=== PATIENT | male | born 1940 | race Caucasian/White ===

== ENCOUNTER → 2018-05-17 | Outpatient (CLI) | payer MEDICARE, OTHER | LOC: RAD 08:46 | DX: E04.1 Nontoxic single thyroid nodule (principal) ==

== ENCOUNTER → 2018-08-19 | Outpatient (CLI) | payer MEDICARE, OTHER | LOC: RAD 09:44 | DX: J43.9 Emphysema, unspecified (principal); R91.1 Solitary pulmonary nodule | CPT/HCPCS: Q9967 ==

== ENCOUNTER 2019-06-21 11:11 | Emergency (ER) | payer MEDICARE, OTHER ==
[~2019-06-21] VITALS: Wt 93.2 kg
[2019-06-21 11:38] LABS: HEMATOCRIT 40.7 % (42.0-52.0); HEMOGLOBIN 13.1 g/dL (13.5-18.0); MEAN CELL VOLUME 96 fl (78-100); MEAN CORPUSCULAR HEMOGLOBIN 31 pg (27-31); MEAN CORPUSCULAR HGB CONC 32 g/dL (33-37); MEAN PLATELET VOLUME 11.9 fl (7.4-10.4); PLATELET COUNT 175 K/mm3 (130-400); RED BLOOD COUNT 4.26 M/mm3 (4.20-5.60); RED CELL DISTRIBUTION WIDTH 14.2 % (11.5-14.5); WHITE BLOOD COUNT 11.3 K/mm3 (4.8-10.8)
[2019-06-21 11:53] LABS: ALBUMIN 3.9 g/dL (3.4-4.8)
[2019-06-21 11:54] LABS: POTASSIUM 3.9 mmol/L (3.5-5.1)
[2019-06-21 11:55] LABS: CALCIUM 8.8 mg/dL (8.3-10.5)
[2019-06-21 11:56] LABS: TOTAL PROTEIN 6.6 g/dL (6.2-8.1)
[2019-06-21 12:08] LABS: BAND 1 % (0-10); LYMPHOCYTE 10 % (20-51); MONOCYTE 9 % (3-10); NEUTROPHILS 79 % (42-75)
[2019-06-21 12:41] LABS: URINE APPEARANCE CLEAR; URINE BILIRUBIN NEGATIVE (NEGATIVE); URINE BLOOD NEGATIVE (NEGATIVE); URINE COLOR YELLOW; URINE GLUCOSE NEGATIVE (NEGATIVE); URINE KETONE 1+ (NEGATIVE); URINE LEUKOCYTE ESTERASE NEGATIVE (NEGATIVE); URINE NITRATE NEGATIVE (NEGATIVE); URINE PROTEIN(semi-quant) NEGATIVE (NEGATIVE); URINE UROBILINOGEN NORMAL (NORMAL); URINE WBC 0-1 /hpf (0-3)
[2019-06-21] MEDS ORDERED: ATORVASTATIN CA40 MG PO (13:05)
[2019-06-21] MEDS ORDERED: FUROSEMIDE40 MG (13:05)
[2019-06-21] MEDS ORDERED: ELIQUIS5 MG PO (13:05)
[2019-06-21] MEDS ORDERED: MEMANTINE HCL5 MG PO (13:06)
[2019-06-21] MEDS ORDERED: JANUVIA50 MG PO (13:06)
[2019-06-21] MEDS ORDERED: METFORMIN ER500 MG PO (13:06)
[2019-06-21] MEDS ORDERED: STIOLTO RESPIMAT4 GM IH (13:06)
[2019-06-21] MEDS ORDERED: PIOGLITAZONE HC30 MG PO (13:06)
[2019-06-21 13:08] VITALS: BP 170/68
== END 2019-06-21 12:52 | disposition other institution (70) ==
LOC: ED 11:11
PROVIDERS: Physician Assistant
DX: J18.1 Lobar pneumonia, unspecified organism (principal); J44.9 Chronic obstructive pulmonary disease, unspecified; I50.9 Heart failure, unspecified; E11.9 Type 2 diabetes mellitus without complications; F03.90 Unspecified dementia, unspecified severity, without behavioral disturbance, psychotic disturbance, mood disturbance, and anxiety; Z79.84 Long term (current) use of oral hypoglycemic drugs; Z86.73 Personal history of transient ischemic attack (TIA), and cerebral infarction without residual deficits; Z87.891 Personal history of nicotine dependence; Z88.0 Allergy status to penicillin
CPT/HCPCS: J1940